=== PATIENT | male | born 2000 | race Caucasian/White ===

== ENCOUNTER 2024-06-12 21:46 | Emergency (ER) | payer BC ==
[~2024-06-12] VITALS: Ht 170.2 cm; Wt 88.6 kg
[2024-06-12 21:52] VITALS: TEMP 98.7
[2024-06-12 22:31] LABS: BASO # 0.1 K/mm3 (0.0-0.2); BASO % 0.7 % (0.0-2.0); EOS # 0.1 K/mm3 (0.0-0.7); EOS % 2.1 % (0.0-4.0); GRAN # 3.8 K/mm3 (1.4-6.5); GRAN % 55.8 % (42.2-75.2); HEMATOCRIT 46.6 % (42.0-52.0); HEMOGLOBIN 16.8 g/dl (13.5-18.0); LYMPH % 29.5 % (20.0-51.0); MEAN CELL VOLUME 89 fl (80.0-100.0); MEAN CORPUSCULAR HEMOGLOBIN 32 pg (27-31); MEAN CORPUSCULAR HGB CONC 36 g/dl (33.0-37.0); MONO # 0.8 K/mm3 (0.1-0.6); MONO % 11.5 % (1.7-9.3); PLATELET COUNT 262 K/mm3 (130-400); RED BLOOD COUNT 5.26 M/mm3 (4.20-5.60); REDCELL DISTRIBUTION WIDTH-CV 11.9 % (11.5-14.5)
[2024-06-12 22:39] LABS: MONOSCREEN NEGATIVE
[2024-06-12 22:49] LABS: ALBUMIN 4.5 g/dL (3.5-5.0); BILIRUBIN,TOTAL 1.5 mg/dL (0.2-1.2); C-REACTIVE PROTEIN 0.05 mg/dL (0.00-0.50); CALCIUM 9.6 mg/dL (8.4-10.2); CREATININE, serum 1.2 mg/dL (0.72-1.25); POTASSIUM 3.7 mEq/L (3.5-4.5); TOTAL PROTEIN 7.4 g/dl (6.2-8.1)
[2024-06-12 22:50] LABS: TROPONIN-I 0.013 ng/mL (0.00-0.033)
[2024-06-13 00:12] VITALS: BP 125/75; PULSE 88
== END 2024-06-13 00:12 | disposition home or self-care (01) ==
LOC: COL.ER 21:46
PROVIDERS: Nurse Practitioner
DX: R42 Dizziness and giddiness (principal); R10.13 Epigastric pain

== ENCOUNTER → 2024-06-13 | Outpatient (CLI) | payer BC | LOC: COL.RAD 05:43 | DX: R10.13 Epigastric pain (principal) ==